=== PATIENT | female | born 2005 | race African-American/Black ===

== ENCOUNTER 2024-03-06 22:18 | Inpatient (IN) | payer OTHER, SELFPAY ==
[~2024-03-06 22:18] MED LIST: Iopamidol 300 61% 100 ML VIAL FS ONE
[2024-03-06 23:09] LABS: #Basophils 0.12 10x3/uL (0.0-0.2); #Eosinophils 0.06 10x3/uL (0.0-0.5); #Neutrophils 12.09 10x3/uL (1.5-8.4); %Basophils 0.7 % (0.0-2.0); %Eosinophils 0.3 % (0.0-6.0); %Lymphocytes 18.9 % (18.0-47.0); %Monocytes 9.2 % (0.0-10.0); %Neutrophils 69.9 % (40.0-75.0); Hematocrit 39.4 % (34.9-44.5); Hemoglobin 13.6 g/dL (12.0-15.5); Mean Corpuscular HGB CONC 34.5 g/dL (32.0-36.0); Mean Corpuscular Hemoglobin 30.6 pg (27.0-33.0); Mean Corpuscular Volume 88.5 fL (81.6-98.3); Mean Platelet Volume 10.7 fL (7.4-10.4); Platelet Count 391 10x3/uL (150-450); RBC Distribution Width 11.5 % (11.5-14.5); Red Blood Cell (RBC) Count 4.45 10x6/uL (3.90-5.03); White Blood Cell (WBC) Count 17.3 10x3/uL (3.5-10.5)
[2024-03-06] MEDS ORDERED: Famotidine/PF 20 mg/2ml Vial ONE (23:12)
[2024-03-06] MEDS ORDERED: Metoclopramide HCl 10 MG (2 mL) VIAL ONE (23:12)
[2024-03-06 23:20] LABS: BHCG - Serum Negative (NEGATIVE); Pregs Control Background? CLEAR/WHITE (CLR/WHITE); Pregs Control Bar Appear? YES (CONTROL BAR)
[2024-03-06 23:28] LABS: ALT (SGPT) 35 U/L (8-55); AST (SGOT) 18 U/L (5-34); Albumin 3.5 g/dL (3.5-5.0); Alkaline Phosphatase 65 U/L (40-100); Anion Gap 20 mmol/L (10-20); BUN (Urea Nitrogen) 6 mg/dL (7.0-18.7); Bilirubin, Total 1.4 mg/dL (0.2-1.2); Calc. Creatinine Clearance 0 mL/min (70-130); Calcium 9.4 mg/dL (7.8-10.44); Carbon Dioxide 12 mmol/L (22-29); Chloride 104 mmol/L (98-107); Estimated GFR 127; Glucose 251 mg/dL (70-105); Protein, Total 7.5 g/dL (6.0-8.3); Sodium 132 mmol/L (136-145)
[2024-03-06 23:34] LABS: Troponin I Less than 0.010 ng/mL (< 0.028)
[2024-03-06 23:35] LABS: Actual Bicarbonate (HCO3v) 16.3 mEq/L (22-28); Analyzer IN Cardio CS ER; Base Excess -8.2 mEq/L (-2 - +2); Calcium, Ionized (venous) 1.18 mmol/L (1.16-1.32); Chloride (VBG) 100 mmol/L (98-106); Hematocrit-VBG 45 % (36.0-47.0); Hemoglobin (Hb) 15.3 g/dL (11.7-15.5); Potassium (VBG) 3.76 mmol/L (3.70-5.30); Puncture Site Other Site; RapidComm Collect By Lab Tech; Sodium 135 mmol/L (133-146); pH (venous) 7.334 (7.32-7.43)
[2024-03-06 23:54] LABS: Bilirubin Neg (Negative); Blood, Urine Negative (Negative); Glucose, Urine (Dipstick) >=1000 mg/dL (Negative); Ketone, Urine 150 mg/dL (Negative); Leukocyte Negative (Negative); Nitrite Negative (Negative); Protein, Urine (Dipstick) 100 mg/dl (Neg-Trace)
[2024-03-06 23:58] LABS: Clarity Hazy (Clear)
[2024-03-07 00:05] LABS: CAUTI Indications for Culture Pelvic or flank pain; RBC/HPF 0-3 HPF (0-3); Squamous Epithelial 0-3 HPF (0-3)
[2024-03-07 00:06] LABS: Bacteria/HPF 2+ HPF (None Seen)
[2024-03-07 00:07] LABS: Urine Culture Reflex No No
[2024-03-07] MEDS ORDERED: INSULIN REGULAR IN 0.9 % NACL 100 ML ONE (00:27)
[2024-03-07] MEDS ORDERED: NS 0.9% w/ 20 MEQ KCL 1,000 ML ONE (00:29)
[2024-03-07] MEDS ORDERED: D5 1/2 NS w/20 mEq KCL 1,000 ML IV PRN (01:51)
[2024-03-07] MEDS ORDERED: Dextrose 5 %-0.45 % NaCl 1,000 ML IV PRN (01:51)
[2024-03-07] MEDS ORDERED: Dextrose 50% Abboject 50 ML SYRINGE SLOW IVP PRN ×2 (01:51→09:45)
[2024-03-07] MEDS ORDERED: Sodium Chloride 0.9% 1,000 ML IV PRN ×5 (01:51→02:11)
[2024-03-07] MEDS ORDERED: Ondansetron ODT 4 MG TAB PO PRN (01:59)
[2024-03-07] MEDS ORDERED: INSULIN REGULAR IN 0.9 % NACL 100 ML IVPB SCH (02:00)
[2024-03-07 02:21] LABS: Magnesium 1.7 mg/dL (1.7-2.2); Phosphorus 2.6 mg/dL (2.3-4.7)
[2024-03-07 03:00] VITALS: BMI 41.4
[2024-03-07] MEDS: Magnesium 2 GM/50 ML(in water) 2 GM in Premix 1 BAG IVPB SCH (03:13)
[2024-03-07] MEDS: Electrolyte Replacement Protocol 1 EACH IVPB ONE (03:14)
[2024-03-07] MEDS: Enoxaparin 40 MG (0.4 mL) SYRINGE SC SCH ×2 (03:14→20:35)
[2024-03-07] MEDS: NS 0.9% w/ 20 MEQ KCL 1,000 ML IV PRN ×2 (03:17→05:31)
[2024-03-07 03:51] LABS: Anion Gap 15 mmol/L (10-20); BUN (Urea Nitrogen) 4 mg/dL (7.0-18.7); Calc. Creatinine Clearance 269 mL/min (70-130); Calcium 8.3 mg/dL (7.8-10.44); Carbon Dioxide 14 mmol/L (22-29); Chloride 110 mmol/L (98-107); Estimated GFR 128; Glucose 172 mg/dL (70-105); Potassium 3.9 mmol/L (3.5-5.1); Sodium 135 mmol/L (136-145)
[2024-03-07 03:59] LABS: Troponin I Less than 0.010 ng/mL (< 0.028)
[2024-03-07] MEDS: Acetaminophen 325 MG TAB PO PRN (04:44)
[2024-03-07] MEDS: Cefepime 2 GM in Sodium Chloride 0.9% 100 ML IVPB SCH (05:59)
[2024-03-07 06:12] LABS: #Basophils 0.04 10x3/uL (0.0-0.2); #Eosinophils 0.04 10x3/uL (0.0-0.5); #Monocytes 1.14 10x3/uL (0.0-1.1); #Neutrophils 11.03 10x3/uL (1.5-8.4); %Basophils 0.3 % (0.0-2.0); %Eosinophils 0.3 % (0.0-6.0); %Lymphocytes 17.9 % (18.0-47.0); %Monocytes 7.5 % (0.0-10.0); Hematocrit 32.3 % (34.9-44.5); Hemoglobin 10.7 g/dL (12.0-15.5); Mean Corpuscular HGB CONC 33.1 g/dL (32.0-36.0); Mean Corpuscular Hemoglobin 29.3 pg (27.0-33.0); Mean Corpuscular Volume 88.5 fL (81.6-98.3); Mean Platelet Volume 10.4 fL (7.4-10.4); Platelet Count 365 10x3/uL (150-450); RBC Distribution Width 11.6 % (11.5-14.5); Red Blood Cell (RBC) Count 3.65 10x6/uL (3.90-5.03); White Blood Cell (WBC) Count 15.1 10x3/uL (3.5-10.5)
[2024-03-07] MEDS ORDERED: Electrolyte Replacement Protocol FS PRN (06:30)
[2024-03-07 06:55] LABS: Anion Gap 15 mmol/L (10-20); BUN (Urea Nitrogen) Less than 4 mg/dL (7.0-18.7); Calc. Creatinine Clearance 265 mL/min (70-130); Calcium 8.2 mg/dL (7.8-10.44); Carbon Dioxide 11 mmol/L (22-29); Chloride 111 mmol/L (98-107); Estimated GFR 128; Glucose 343 mg/dL (70-105); Magnesium 2.1 mg/dL (1.7-2.2); Phosphorus 1.8 mg/dL (2.3-4.7); Potassium 3.6 mmol/L (3.5-5.1); Sodium 133 mmol/L (136-145)
[2024-03-07] MEDS ORDERED: VANCOMYCIN IVPB PRN (07:04)
[2024-03-07] MEDS: VANCOMYCIN 2 GRAM/400 ML BAG IVPB SCH (07:15)
[2024-03-07] MEDS: VANCOMYCIN 2 GRAM/400 ML BAG 2 GM in Premix 1 BAG IVPB SCH ×2 (07:19→20:34)
[2024-03-07] MEDS: Ondansetron PF 4 MG/2 ML Vial IVP PRN (09:40)
[2024-03-07] MEDS: Vancomycin HCl 500 MG in Sodium Chloride 0.9% 100 ML IVPB SCH (09:44)
[2024-03-07] MEDS ORDERED: Dextrose 5% in Water 1,000 ML IV PRN ×2 (09:45→17:44)
[2024-03-07] MEDS ORDERED: Glucagon 1 MG/ML KIT IM PRN (09:45)
[2024-03-07] MEDS: PHOS-NAK 1 PKT PACK PO SCH (09:46)
[2024-03-07] MEDS: Pantoprazole 40 MG VIAL IVP SCH (09:47)
[2024-03-07] MEDS: Lantus 1000 UNITS/10 ML VIAL SC SCH ×2 (09:51→20:36)
[2024-03-07] MEDS: Calcium Carbonate 500 MG ChewTAB PO PRN (11:18)
[2024-03-07] MEDS: Sodium Chloride 0.9% 1,000 ML IV SCH (11:21)
[2024-03-07 11:25] LABS: Anion Gap 14 mmol/L (10-20); BUN (Urea Nitrogen) Less than 4 mg/dL (7.0-18.7); Calc. Creatinine Clearance 273 mL/min (70-130); Calcium 8.6 mg/dL (7.8-10.44); Carbon Dioxide 15 mmol/L (22-29); Chloride 110 mmol/L (98-107); Estimated GFR 129; Glucose 156 mg/dL (70-105); Potassium 3.6 mmol/L (3.5-5.1); Sodium 135 mmol/L (136-145)
[2024-03-07] MEDS: Insulin Lispro 100 UNIT/ML 10 ML VIAL SC SCH (13:33)
[2024-03-07] MEDS: FLU (Fluarix Triv) TS24-25(6MOS UP)/PF 45 MCG/0.5 ML Syringe IM ONE (20:02)
[2024-03-08 04:11] LABS: Vancomycin, Random 9.5 ug/mL (See Comment)
[2024-03-08 04:26] LABS: #Basophils 0.06 10x3/uL (0.0-0.2); #Eosinophils 0.05 10x3/uL (0.0-0.5); #Monocytes 1.68 10x3/uL (0.0-1.1); #Neutrophils 11.45 10x3/uL (1.5-8.4); %Basophils 0.4 % (0.0-2.0); %Eosinophils 0.3 % (0.0-6.0); %Lymphocytes 18.8 % (18.0-47.0); %Neutrophils 68.4 % (40.0-75.0); Hematocrit 31.8 % (34.9-44.5); Hemoglobin 10.5 g/dL (12.0-15.5); Mean Corpuscular Hemoglobin 29.7 pg (27.0-33.0); Mean Corpuscular Volume 89.8 fL (81.6-98.3); Mean Platelet Volume 10.5 fL (7.4-10.4); Platelet Count 362 10x3/uL (150-450); RBC Distribution Width 11.9 % (11.5-14.5); Red Blood Cell (RBC) Count 3.54 10x6/uL (3.90-5.03); White Blood Cell (WBC) Count 16.7 10x3/uL (3.5-10.5)
[2024-03-08 04:33] LABS: Anion Gap 16 mmol/L (10-20); BUN (Urea Nitrogen) Less than 4 mg/dL (7.0-18.7); Calc. Creatinine Clearance 311 mL/min (70-130); Calcium 8.7 mg/dL (7.8-10.44); Carbon Dioxide 12 mmol/L (22-29); Chloride 114 mmol/L (98-107); Estimated GFR 133; Glucose 167 mg/dL (70-105); Magnesium 1.9 mg/dL (1.7-2.2); Phosphorus 2.4 mg/dL (2.3-4.7); Potassium 3.4 mmol/L (3.5-5.1); Sodium 139 mmol/L (136-145)
[2024-03-08] MEDS: VANCOMYCIN 2 GRAM/400 ML BAG 2 GM in Premix 1 BAG IVPB SCH (08:10)
[2024-03-08] MEDS: Potassium Chloride 20 MEQ TAB PO SCH (08:10)
[2024-03-08] MEDS: Magnesium 2 GM/50 ML(in water) 2 GM in Premix 1 BAG IVPB SCH (08:11)
[2024-03-08] MEDS ORDERED: Rocuronium Bromide 10 MG/ML (10ML VIAL) ONE (11:06)
[2024-03-08] MEDS ORDERED: Ondansetron PF 4 MG/2 ML Vial ONE (11:06)
[2024-03-08] MEDS ORDERED: Lidocaine 1% PF 5 ML VIAL ONE (11:06)
[2024-03-08] MEDS ORDERED: PROPOFOL 20 ML ONE (11:06)
[2024-03-08] MEDS ORDERED: fentaNYL 50 mcg/mL 1 mL Vial ONE (11:06)
[2024-03-08] MEDS ORDERED: PHENYLEPHRINE-NS 100 MCG/ML 10 ML SYRINGE ONE (11:39)
[2024-03-08] MEDS ORDERED: Bupivacaine HCl 0.5%/Epinephrine 1:200,000/PF 30 ml Vial ONE (11:40)
[2024-03-08] MEDS: Acetaminophen 500 MG TAB PO SCH (13:23)
[2024-03-08] MEDS: traMADol HCl 50 MG TAB PO PRN (13:30)
[2024-03-09 05:21] LABS: Vancomycin, Random 26.3 ug/mL (See Comment)
[2024-03-09 05:22] LABS: Magnesium 1.9 mg/dL (1.7-2.2); Potassium 3.6 mmol/L (3.5-5.1)
[2024-03-09] MEDS: VANCOMYCIN 1.75 GM/350 ML BAG 1.75 GM in Premix 1 BAG IVPB SCH (08:58)
[2024-03-09 09:32] LABS: #Basophils 0.05 10x3/uL (0.0-0.2); #Eosinophils 0.17 10x3/uL (0.0-0.5); #Monocytes 0.85 10x3/uL (0.0-1.1); #Neutrophils 8.73 10x3/uL (1.5-8.4); %Basophils 0.4 % (0.0-2.0); %Eosinophils 1.3 % (0.0-6.0); %Lymphocytes 21.1 % (18.0-47.0); %Monocytes 6.7 % (0.0-10.0); %Neutrophils 68.3 % (40.0-75.0); Hematocrit 30.3 % (34.9-44.5); Hemoglobin 9.9 g/dL (12.0-15.5); Mean Corpuscular HGB CONC 32.7 g/dL (32.0-36.0); Mean Corpuscular Hemoglobin 29.1 pg (27.0-33.0); Mean Corpuscular Volume 89.1 fL (81.6-98.3); Mean Platelet Volume 10.1 fL (7.4-10.4); Platelet Count 412 10x3/uL (150-450); RBC Distribution Width 12.6 % (11.5-14.5); White Blood Cell (WBC) Count 12.8 10x3/uL (3.5-10.5)
[2024-03-09 09:44] LABS: Anion Gap 14 mmol/L (10-20); BUN (Urea Nitrogen) 4 mg/dL (7.0-18.7); Calc. Creatinine Clearance 334 mL/min (70-130); Calcium 8.5 mg/dL (7.8-10.44); Carbon Dioxide 13 mmol/L (22-29); Chloride 116 mmol/L (98-107); Estimated GFR 135; Glucose 162 mg/dL (70-105); Potassium 3.7 mmol/L (3.5-5.1); Sodium 139 mmol/L (136-145)
[2024-03-09] MEDS: Magnesium 2 GM/50 ML(in water) 2 GM in Premix 1 BAG IVPB SCH (12:09)
[2024-03-09 12:19] VITALS: BP 106/70; TEMP 97.2
[2024-03-09] MEDS: Ibuprofen 200 MG TAB PO PRN (12:27)
== END 2024-03-09 13:45 | disposition home or self-care (01) | DRG 638 ==
LOC: CSHERS 22:18 → CSHTELE 03-07 01:16
PROVIDERS: ADMIT Family Medicine; ATTEND Internal Medicine
PROC: 0J980ZZ Drainage of Abdomen Subcutaneous Tissue and Fascia, Open Approach (ICD-10-PCS; principal; 2024-03-08)
PROC: 3E033XZ Introduction of Vasopressor into Peripheral Vein, Percutaneous Approach (ICD-10-PCS; 2024-03-08)
DX: E11.10 Type 2 diabetes mellitus with ketoacidosis without coma (principal); L02.211 Cutaneous abscess of abdominal wall; Z68.41 Body mass index [BMI] 40.0-44.9, adult; Z90.49 Acquired absence of other specified parts of digestive tract; I10 Essential (primary) hypertension; E66.813 Obesity, class 3; Z79.4 Long term (current) use of insulin; E88.810 Metabolic syndrome
CPT/HCPCS: 36415; 36416; 71045; 71275; 74177; 76705; 80048; 80053; 80202; 81001; 82010; 82805; 83605; 83735; 83880; 84100; 84132; 84484; 84702; 84703; 85025; 85379; 87040; 87070; 87077; 87186; 87205; 87428; 93005; 96374; 96375; 97139; J0692; J1650; J1815; J2405; J2470; J2704; J2765; J3010; J3370; J3475; J3480; J3490; J7030; Q9967